=== PATIENT | male | born 2000 | race African-American/Black ===

== ENCOUNTER 2023-11-08 09:17 | Outpatient (CLI) | payer OTHER | END 2023-11-08 09:18 | disposition home or self-care (01) | LOC: ULT 09:17 | PROVIDERS: ATTEND Nurse Practitioner Family | DX: I86.1 Scrotal varices (principal); N50.89 Other specified disorders of the male genital organs | CPT/HCPCS: 76870; 93976 ==

== ENCOUNTER 2024-03-06 15:18 | Emergency (ER) | payer OTHER ==
[2024-03-06 15:48] LABS: #Basophils 0.04 10x3/uL (0.0-0.2); %Basophils 0.7 % (0.0-1.0); %Eosinophils 2.3 % (0.0-10.0); %Lymphocytes 31.4 % (21.0-51.0); %Monocytes 8.2 % (0.0-10.0); %Neutrophils 57.2 % (42.0-75.0); Hematocrit 45.4 % (42.0-52.0); Hemoglobin 15.7 g/dL (14.0-18.0); Mean Corpuscular HGB CONC 34.6 g/dL (32.0-36.0); Mean Corpuscular Hemoglobin 30.4 pg (27.0-31.0); Mean Corpuscular Volume 87.8 fL (78.0-98.0); Mean Platelet Volume 10.8 fL (7.4-10.4); Platelet Count 241 10x3/uL (130-400); RBC Distribution Width 11.8 % (11.5-14.5); Red Blood Cell (RBC) Count 5.17 mill/uL (4.70-6.10)
[2024-03-06 16:05] LABS: Troponin I Less than 0.010 ng/mL (< 0.028)
[2024-03-06 16:18] LABS: ALT (SGPT) 15 U/L (8-55); AST (SGOT) 23 U/L (5-34); Albumin 4.9 g/dL (3.5-5.0); Alkaline Phosphatase 56 U/L (40-110); Anion Gap 18 mmol/L (10-20); BUN (Urea Nitrogen) 18 mg/dL (8.9-20.6); Bilirubin, Total 1.3 mg/dL (0.2-1.2); Calc. Creatinine Clearance 0 mL/min (70-130); Calcium 10.2 mg/dL (7.8-10.44); Carbon Dioxide 20 mmol/L (22-29); Chloride 102 mmol/L (98-107); Estimated GFR 73; Globulin 3.3 g/dL (2.4-3.5); Glucose 92 mg/dL (70-105); Potassium 3.6 mmol/L (3.5-5.1); Protein, Total 8.2 g/dL (6.0-8.3); Sodium 136 mmol/L (136-145)
== END 2024-03-06 16:45 | disposition home or self-care (01) ==
LOC: ERS 15:18
DX: R07.9 Chest pain, unspecified (principal)
CPT/HCPCS: 36415; 71045; 80053; 83690; 84484; 85025; 93005